=== PATIENT | female | born 1980 | race Caucasian/White ===

== ENCOUNTER 2021-08-20 14:22 | Emergency (ER) | payer MEDICARE, OTHER ==
[2021-08-20] MEDS ORDERED: IBUPROFEN600 MG PO (17:10)
== END 2021-08-20 17:40 | disposition home or self-care (01) ==
LOC: ER1 14:22
DX: S93.401A Sprain of unspecified ligament of right ankle, initial encounter (principal); E11.9 Type 2 diabetes mellitus without complications; I10 Essential (primary) hypertension; F17.200 Nicotine dependence, unspecified, uncomplicated; X50.9XXA Other and unspecified overexertion or strenuous movements or postures, initial encounter
CPT/HCPCS: 73610; 73630; 99283